=== PATIENT | male | born 1975 | race Caucasian/White ===

== ENCOUNTER 2022-04-23 07:58 | Outpatient (CLI) | payer BC ==
[2022-04-23] MEDS ORDERED: GASTROGRAFIN 30 ML BOT ONE (11:24)
[2022-04-23] MEDS ORDERED: Iopamidol 370 76% 100 ML VIAL ONE (11:24)
== END 2022-04-23 07:59 | disposition home or self-care (01) ==
LOC: CT 07:58
PROVIDERS: ATTEND Internal Medicine
DX: D3A.8 Other benign neuroendocrine tumors (principal); R91.1 Solitary pulmonary nodule; K86.89 Other specified diseases of pancreas
CPT/HCPCS: 71260; 74178

== ENCOUNTER 2023-06-07 09:09 | Outpatient (CLI) | payer BC ==
[2023-06-07] MEDS ORDERED: Iopamidol 370 76% 100 ML VIAL ONE (10:18)
== END 2023-06-07 09:10 | disposition home or self-care (01) ==
LOC: CT 09:09
PROVIDERS: ATTEND Surgery
DX: K43.2 Incisional hernia without obstruction or gangrene (principal); K43.9 Ventral hernia without obstruction or gangrene
CPT/HCPCS: 74177